=== PATIENT | male | born 1965 | race Caucasian/White ===

== ENCOUNTER 2021-06-28 17:40 | Emergency (ER) | payer OTHER ==
[~2021-06-28] VITALS: Ht 188 cm; Wt 112.0 kg
[2021-06-28] MEDS ORDERED: PRESION (17:51)
[2021-06-28] MEDS ORDERED: QVAR REDIHALE10.6 GM (17:52)
== END 2021-06-28 21:10 | disposition home or self-care (01) ==
LOC: ER 17:40
DX: S43.004A Unspecified dislocation of right shoulder joint, initial encounter (principal); W16.92XA Jumping or diving into unspecified water causing other injury, initial encounter; Y93.89 Activity, other specified; Y92.832 Beach as the place of occurrence of the external cause; Y99.9 Unspecified external cause status